=== PATIENT | male | born 1960 | race African-American/Black ===

== ENCOUNTER 2017-01-06 17:24 | Inpatient (IN) | payer MEDICARE, OTHER ==
[~2017-01-06] VITALS: Ht 188 cm; Wt 180.1 kg
[~2017-01-06 17:24] MED LIST: ALBUTEROL2.5 MG/3 M INH; ALLOPURINOL300 M1 ORAL; ASPIRIN-LOW81 MG ORAL; ATORVASTATIN CA80 MG ORAL; BENADRYL25 MG ORAL; BISACODYL5 MG ORAL; COREG25 MG ORAL; CYCLOBENZAPRINE10 MG ORAL; DILAUDID4 MG ORAL; DOCUSATE SODIU100 MG ORAL; GABAPENTIN800 MG ORAL; GLIPIZIDE10 MG PO; GLUCOPHAGE1000 MG ORAL; HUMALOG SQ; IMDUR; IMODIUM2 MG ORAL; ISOSORBIDE MON120 M1 PO; MAGNESIUM OXID400 M1 ORAL; MULTIVITAMINS1 EA14 PO; NEURONTIN600 MG ORAL; NITROSTAT0.4 M2 SL; NORVASC5 MG ORAL; PLAVIX75 MG ORAL; POTASSIUM CHLO10 ME3 ORAL; PROAIR HFA8.5 GM INH; PROSCAR5 MG ORAL; PROTONIX40 MG ORAL; TAMSULOSIN HCL0.4 MG ORAL; TRULICITY1.5 MG/0.5 SQ; TYLENOL EXTRA500 MG ORAL
[2017-01-06] MEDS: Aspirin Baby 81mg ORAL ONE ×2 (17:43→17:47)
[2017-01-06 18:14] LABS: BASOPHILS % (AUTO) 1.1 % (0.0-2.0); EOSINOPHILS % (AUTO) 2.7 % (0.0-3.0); LYMPHOCYTES % (AUTO) 37.4 % (20.0-45.0); MEAN CORPUSCULAR HEMOGLOBIN 28.9 PG (27.0-31.0); MEAN CORPUSCULAR HGB CONC 32.1 G/DL (32.0-36.0); MEAN CORPUSCULAR VOLUME 90 FL (80-99); MEAN PLATELET VOLUME 8.7 FL (6.5-10.1); MONOCYTES % (AUTO) 7.4 % (1.0-10.0); NEUTROPHILS % (AUTO) 51.3 % (45.0-75.0); PLATELET COUNT 201 K/UL (150-450); RED BLOOD COUNT 4.77 M/UL (4.70-6.10); RED CELL DISTRIBUTION WIDTH 14.3 % (11.6-14.8); WHITE BLOOD COUNT 10.7 K/UL (4.8-10.8)
[2017-01-06 18:17] VITALS: BP 102/48
[2017-01-06 18:33] LABS: TROPONIN I < 0.30 ng/mL (<=0.30)
[2017-01-06 18:34] LABS: ALANINE AMINOTRANSFERASE 9 U/L (3-41); ALBUMIN/GLOBULIN RATIO 1.1 (1.0-2.7); ANION GAP 19 (5-15); ASPARTATE AMINO TRANSFERASE 12 U/L (5-40); CALCIUM 9.1 mg/dL (8.6-10.2); CARBON DIOXIDE 21 mEQ/L (20-30); CHLORIDE 98 mEQ/L (98-107); CREATININE 1.4 mg/dL (0.7-1.2); GLOMERULAR FILTRATION RATE > 60 mL/min (>60); HEMOLYSIS 4; POTASSIUM 3.9 mEQ/L (3.4-4.9); SODIUM 138 mEQ/L (135-145); TOTAL PROTEIN 7.4 g/dL (6.6-8.7)
[2017-01-06 18:41] VITALS: BP 102/48
[2017-01-06 18:45] LABS: CKMB < 1.5 ng/mL (< 6.7)
[2017-01-06 19:49] LABS: BILIRUBIN,DIRECT 0.3 mg/dL (0.1-0.3)
[2017-01-06 19:51] LABS: APPEARANCE,URINE CLEAR; KETONES,URINE 1+ (NEGATIVE); LEUKOCYTE ESTERASE ,URINE NEGATIVE (NEGATIVE); NITRITE,URINE NEGATIVE (NEGATIVE); PH,URINE 7 (4.5-8.0); PROTEIN,URINE NEGATIVE (NEGATIVE); UROBILINOGEN,URINE NORMAL MG/DL (0.0-1.0)
[2017-01-06] MEDS ORDERED: Ketorolac 30mg Inj IV ONE (20:30)
--- NOTE | 2017-01-06 20:37 | Emergency Room Report ---
History of Present Illness General Chief Complaint: Chest Pain Source: Patient, EMS Present Illness HPI This patient states that he has had chest pain that started this afternoon around 3 PM. He states he also felt lightheaded. Patient states he has a history of diabetes, coronary artery disease, NV and CVA. EMS report that they see him often in and run him to [facility] very often for the same symptoms. Patient denies recent illness. Patient denies fever chills, cough or congestion. He has no other complaints. Allergies: Coded Allergies: IBUPROFEN (Unverified Adverse Reaction, Unknown, FLUID IN LUNGS, 12/25/15) Uncoded Allergies: Monitor lead stickers (Allergy, Mild, 01/07/17) ibnuprofen (Allergy, Unknown, 12/25/15) caused fluid in lungs Patient History Past Medical History: see triage record, DM, HTN, NV, CAD, CHF, CVA/TIA, other - MARIBEL Past Surgical History: other - Gastric bypass Social History: Denies: alcohol use, drug use, smoking Reviewed Nursing Documentation: PMH: Agreed, PSxH: Agreed Nursing Documentation-PMH Hx Hypertension: Yes Hx Diabetes: Yes Hx Cancer: No Hx Gastrointestinal Problems: No Hx Cerebrovascular Accident: Yes Review of Systems All Other Systems: negative except mentioned in HPI Physical Exam Vital Signs Date Time Temp Pulse Resp B/P Pulse Ox O2 Delivery O2 Flow Rate FiO2 01/06/17 17:17 98.2 48 16 91/71 97 Room Air Sp02 EP Interpretation: reviewed, normal General Appearance: no apparent distress, alert, GCS 15, non-toxic Head: normocephalic, atraumatic Eyes: bilateral eye PERRL, bilateral eye normal inspection ENT: hearing grossly normal, normal pharynx, no angioedema, normal voice Neck: full range of motion, supple/symm/no masses Respiratory: chest non-tender, lungs clear, normal breath sounds, no respiratory distress, no retraction, no accessory muscle use, speaking full sentences Cardiovascular #1: regular rate, rhythm, no edema Gastrointestinal: normal bowel sounds, non tender, soft, non-distended, no guarding, no rebound Rectal: deferred Musculoskeletal: normal range of motion Neurologic: alert, oriented x3, responsive, motor strength/tone normal, sensory intact, speech normal Psychiatric: judgement/insight normal, memory normal, mood/affect normal, no suicidal/homicidal ideation Skin: normal color, no rash, warm/dry, well hydrated Medical Decision Making Diagnostic Impression: Primary Impression: Chest pain ER Course This patient presents with chest pain. He has a history of coronary artery disease and NV. He also has a history of diabetes. He is high risk for acute coronary syndrome. He will be admitted to rule out acute coronary syndrome and further monitoring of his chest pain. Initial workup to include CBC, CMP, cardiac enzymes, chest x-ray and EKG are unremarkable. He is admitted to telemetry. Labs Test 01/06/17 17:40 01/06/17 19:37 White Blood Count 10.7 K/UL (4.8-10.8) Red Blood Count 4.77 M/UL (4.70-6.10) Hemoglobin 13.8 G/DL (14.2-18.0) Hematocrit 43.0 % (42.0-52.0) Mean Corpuscular Volume 90 FL (80-99) Mean Corpuscular Hemoglobin 28.9 PG (27.0-31.0) Mean Corpuscular Hemoglobin Concent 32.1 G/DL (32.0-36.0) Red Cell Distribution Width 14.3 % (11.6-14.8) Platelet Count 201 K/UL (150-450) Mean Platelet Volume 8.7 FL (6.5-10.1) Neutrophils (%) (Auto) 51.3 % (45.0-75.0) Lymphocytes (%) (Auto) 37.4 % (20.0-45.0) Monocytes (%) (Auto) 7.4 % (1.0-10.0) Eosinophils (%) (Auto) 2.7 % (0.0-3.0) Basophils (%) (Auto) 1.1 % (0.0-2.0) Sodium Level 138 mEQ/L (135-145) Potassium Level 3.9 mEQ/L (3.4-4.9) Chloride Level 98 mEQ/L (98-107) Carbon Dioxide Level 21 mEQ/L (20-30) Anion Gap 19 (5-15) Blood Urea Nitrogen 16 mg/dL (7-23) Creatinine 1.4 mg/dL (0.7-1.2) Estimat Glomerular Filtration Rate > 60 mL/min (>60) Glucose Level 121 mg/dL (74-106) Calcium Level 9.1 mg/dL (8.6-10.2) Total Bilirubin 1.9 mg/dL (0.0-1.2) Direct Bilirubin 0.3 mg/dL (0.1-0.3) Aspartate Amino Transf (AST/SGOT) 12 U/L (5-40) Alanine Aminotransferase (ALT/SGPT) 9 U/L (3-41) Alkaline Phosphatase 62 U/L (40-129) Total Creatine Kinase 40 U/L (38-174) Creatine Kinase MB < 1.5 ng/mL (< 6.7) Creatine Kinase MB Relative Index 3.7 Troponin I < 0.30 ng/mL (<=0.30) Total Protein 7.4 g/dL (6.6-8.7) Albumin 3.9 g/dL (3.5-5.2) Globulin 3.5 g/dL Albumin/Globulin Ratio 1.1 (1.0-2.7) Urine Color Yellow Urine Appearance Clear Urine pH 7 (4.5-8.0) Urine Specific [place] 1.010 (1.005-1.035) Urine Protein Negative (NEGATIVE) Urine Glucose (UA) Negative (NEGATIVE) Urine Ketones 1+ (NEGATIVE) Urine Occult Blood Negative (NEGATIVE) Urine Nitrite Negative (NEGATIVE) Urine Bilirubin Negative (NEGATIVE) Urine Urobilinogen Normal MG/DL (0.0-1.0) Urine Leukocyte Esterase Negative (NEGATIVE) Urine Opiates Screen Positive (NEGATIVE) Urine Barbiturates Screen Negative (NEGATIVE) Phencyclidine (PCP) Screen Negative (NEGATIVE) Urine Amphetamines Screen Negative (NEGATIVE) Urine Benzodiazepines Screen Negative (NEGATIVE) Urine Cocaine Screen Negative (NEGATIVE) Urine Marijuana (THC) Screen Negative (NEGATIVE) EKG Diagnostic Results Rate: normal Rhythm: NSR ST Segments: no acute changes Rhythm Strip Diag. Results EP Interpretation: yes Rate: 70's Rhythm: NSR, no PVC's, no ectopy Chest X-Ray Diagnostic Results EP Interpretation: Yes Findings: no consolidation, no effusion, no pneumothorax, no acute cardiopulmonary disease Number of Views: 1 Last Vital Signs Date Time Temp Pulse Resp B/P Pulse Ox O2 Delivery O2 Flow Rate FiO2 01/06/17 18:41 65 21 102/48 100 Room Air 01/06/17 17:17 98.2 Disposition: ADMITTED INPATIENT Condition: Stable Referrals: LA LUONG (PCP) LAY MINOR D.O. Jan 06, 2017 20:37
[2017-01-06 21:15] VITALS: BP 138/56
[2017-01-06] MEDS ORDERED: Diltiazem 25mg/5ml IV PRN (22:00)
[2017-01-06] MEDS ORDERED: Nitroglycerin Subl 0.4mg tab (Bottle Of 25) SL PRN (22:00)
[2017-01-06] MEDS ORDERED: DuoNeb 0.5-3(2.5)mg/3ml neb HHN PRN (22:00)
[2017-01-06] MEDS ORDERED: Miralax 17gm pkt ORAL PRN (22:00)
[2017-01-06] MEDS ORDERED: Ketorolac 30mg Inj IV PRN (22:00)
[2017-01-06] MEDS ORDERED: Enalaprilat 2.5mg/2ml Inj IV PRN (22:00)
[2017-01-07 00:18] VITALS: BP 125/63
[2017-01-07] MEDS: Heparin 5000 units/ml inj SUBQ SCH ×3 (00:45→13:59)
[2017-01-07] MEDS: Morphine Sulfate 2mg/ml Inj IVP PRN ×5 (00:46→18:52)
[2017-01-07 04:16] VITALS: BP 110/46
[2017-01-07] MEDS: NovoLOG Insulin Flexpen SUBQ SCH ×3 (06:24→17:13)
[2017-01-07 06:37] LABS: BASOPHILS % (AUTO) 0.8 % (0.0-2.0); EOSINOPHILS % (AUTO) 3.6 % (0.0-3.0); LYMPHOCYTES % (AUTO) 38.7 % (20.0-45.0); MEAN CORPUSCULAR HEMOGLOBIN 29.1 PG (27.0-31.0); MEAN CORPUSCULAR HGB CONC 32.1 G/DL (32.0-36.0); MEAN CORPUSCULAR VOLUME 91 FL (80-99); MEAN PLATELET VOLUME 8.5 FL (6.5-10.1); MONOCYTES % (AUTO) 6.3 % (1.0-10.0); NEUTROPHILS % (AUTO) 50.6 % (45.0-75.0); PLATELET COUNT 174 K/UL (150-450); RED BLOOD COUNT 4.51 M/UL (4.70-6.10); RED CELL DISTRIBUTION WIDTH 14.4 % (11.6-14.8); WHITE BLOOD COUNT 8.7 K/UL (4.8-10.8)
[2017-01-07 07:04] LABS: INR 1.2 (0.9-1.1); PROTHROMBIN TIME 12.2 SEC (9.30-11.50)
[2017-01-07 07:45] LABS: CHOLESTEROL/HDL RATIO 3.5 (3.3-4.4); CRP QUANT 0.7 mg/dL (< 0.5)
[2017-01-07 07:59] LABS: THYROID STIMULATING HORMONE 0.485 uIU/mL (0.300-4.500)
[2017-01-07] MEDS ORDERED: HYDROmorphone 4mg tab ORAL PRN (08:00)
[2017-01-07 08:02] VITALS: BP 120/67
[2017-01-07 08:22] LABS: TROPONIN I < 0.30 ng/mL (<=0.30)
[2017-01-07] MEDS: Carvedilol 25mg Tab ORAL SCH ×2 (08:57→17:37)
[2017-01-07] MEDS ORDERED: Aspirin Baby 81mg ORAL SCH (09:00)
[2017-01-07] MEDS ORDERED: Bisacodyl EC 5mg tab ORAL SCH (09:00)
[2017-01-07] MEDS ORDERED: Cyclobenzaprine 10mg Tab ORAL SCH (09:00)
[2017-01-07] MEDS ORDERED: FUROSEMIDE10 MG/1 M1 IVP (09:09)
[2017-01-07 11:20] VITALS: BP 109/58
--- NOTE | 2017-01-07 12:38 | Diagnostic Imaging Report ---
Indication: Chest pain Technique: One view of the chest Comparison: none Findings: There is a right arm PICC. Lungs and pleural spaces are clear. Heart size is normal Impression: Negative
--- NOTE | 2017-01-07 13:58 | Wound Care Consultation ---
Wound Assessment Wound Assessment : Wound Present on Admission: Yes New Wound: No Status Change of Wound: No Wound Location Body Site Modif: right Wound Location Body Site: metatarsal head - 1st Wound Type: pressure ulcer Sachi Test: Does not Sachi Pressure Ulcer Stage: IV/unstageable Wound Thickness: Full Thickness Wound Length: 3.0 Wound Width: 3.0 Wound Depth: utd Percent of Wound Black/Brown: 60 Percent of Wound Purple/Maroon: 40 Wound Drainage Amount: None Wound Drainage Odor: None/Absent Tissue Surrounding Wound: Indurated Wound General Appearance: Asymptomatic Wound Comment #1 Right 1st metatarsal head unstageable Recommendation -Local wound care per protocol -Keep clean and dry -Turn and reposition -Optimize nutrition -Offload both heels -Assess and f/u accordingly for any changes JENNIFER BENÍTEZ RN Jan 07, 2017 13:58
--- NOTE | 2017-01-07 15:20 | History and Physical ---
History of Present Illness General Date patient seen: Jan 07, 2017 Reason for Hospitalization: Chest Pain Present Illness HPI 56 year old male with extensive PMHx of multiple CVA, DM angiography in the past , just recently discharged from [facility] for an episode of CVA, he was brought in from his rehab for an episode of chest pain that started yesterday around 3 PM. He states he also felt lightheaded. EMS report that they see him often in and run him to [facility] very often for the same symptoms. Patient denies recent illness. Patient denies fever chills, cough or congestion. He is admitted to telemetry for further evaluation. Allergies: Coded Allergies: IBUPROFEN (Unverified Adverse Reaction, Unknown, FLUID IN LUNGS, 12/25/15) Uncoded Allergies: Monitor lead stickers (Allergy, Mild, 01/07/17) Medication History Scheduled Albuterol Sulfate* (Proair Hfa*), 1 PUFF INH TID, (Reported) Allopurinol* (Allopurinol*), 300 MG ORAL DAILY, (Reported) Amlodipine Besylate (Norvasc), 5 MG ORAL DAILY, (Reported) Aspirin (Aspirin EC), 81 MG ORAL DAILY, (Reported) Atorvastatin Calcium* (Lipitor*), 80 MG ORAL BEDTIME, (Reported) Bisacodyl* (Dulcolax*), 5 MG ORAL DAILY, (Reported) Carvedilol (Coreg), 25 MG ORAL BID, (Reported) Clopidogrel Bisulfate* (Plavix*), 75 MG ORAL DAILY, (Reported) Cyclobenzaprine Hcl* (Flexeril*), 5 MG ORAL Q8, (Reported) Docusate Sodium* (Docusate Sodium*), 100 MG ORAL TWICE A DAY, (Reported) Dulaglutide (Trulicity), 1.5 MG SQ QMONDAY, (Reported) Finasteride* (Proscar*), 5 MG ORAL DAILY, (Reported) Furosemide (Furosemide), 160 MG IVP TID, (Reported) Gabapentin* (Gabapentin*), 1,500 MG ORAL DA, (Reported) Gabapentin* (Neurontin*), 600 MG ORAL BID, (Reported) Glipizide (Glipizide), 10 MG PO BID, (Reported) Hydromorphone HCl (Dilaudid), 4 MG ORAL Q3HR, (Reported) Isosorbide Mononitrate (Isosorbide Mononitrate Er), 240 MG PO DA, (Reported) Loperamide HCl (Loperamide), 2 MG ORAL Q4H, (Reported) Magnesium Oxide (Magnesium Oxide), 800 MG ORAL TID, (Reported) Metformin Hcl (Glucophage), 1,000 MG ORAL BID, (Reported) Multivitamin (Multivitamins), 1 EACH PO DA, (Reported) Nitroglycerin (Nitrostat), 0.4 MG SL NEEDED, (Reported) Pantoprazole* (Protonix*), 40 MG ORAL BI, (Reported) Potassium Chloride (Potassium Chloride), 40 MEQ ORAL TID, (Reported) Tamsulosin Hcl (Tamsulosin Hcl*), 0.4 MG ORAL BEDTIME, (Reported) Scheduled PRN Acetaminophen* (Tylenol Extra Strength*), 500 MG ORAL Q6H PRN for Mild Pain/ Temp > 100.5, (Reported) Albuterol Sulfate* (Albuterol Sulfate Hhn*), 3 ML INH Q4H PRN for Shortness of Breath, (Reported) Diphenhydramine Hcl* (Benadryl*), 25 MG ORAL Q6H PRN for Itching, (Reported) Miscellaneous Medications [Humalog ], SQ, (Reported) [Imdur], (Reported) Patient History Healthcare decision maker Resuscitation status Full Code Advanced Directive on File Past Medical/Surgical History Past Medical/Surgical History: (1) Cerebrovascular accident (CVA) (2) Acute type 1 diabetes mellitus with manifestations (3) Diabetes mellitus (4) Obstructive sleep apnea (5) CAD (coronary artery disease) (6) Chest pain Review of Systems All Other Systems: negative except mentioned in HPI Physical Exam General Appearance: WD/WN, no apparent distress Lines, tubes and drains: peripheral HEENT: normocephalic, atraumatic Neck: non-tender, normal alignment Respiratory/Chest: chest wall non-tender, lungs clear Cardiovascular/Chest: normal peripheral pulses, normal rate Abdomen: normal bowel sounds, non tender Extremities: normal range of motion Last 24 Hour Vital Signs Date Time Temp Pulse Resp B/P Pulse Ox O2 Delivery O2 Flow Rate FiO2 01/07/17 11:20 97.2 57 19 109/58 94 Nasal Cannula 2.0 01/07/17 10:00 72 18 100 Facial 30 01/07/17 08:57 67 120/67 01/07/17 08:57 70 120/67 01/07/17 08:02 96.6 70 20 120/67 100 Bi-pap 30 01/07/17 07:41 81 01/07/17 07:20 73 16 100 Facial 30 01/07/17 04:58 72 17 97 Facial 30 01/07/17 04:16 98.8 65 21 110/46 98 Bi-pap 01/07/17 04:00 81 01/07/17 03:10 70 23 97 Facial 30 01/07/17 01:16 97.5 01/07/17 00:18 97.5 70 20 125/63 98 Nasal Cannula 2.0 01/07/17 00:00 74 01/06/17 22:57 79 19 126/68 99 Room Air 01/06/17 21:15 97.0 68 21 138/56 100 Room Air 01/06/17 20:56 97.0 01/06/17 18:41 65 21 102/48 100 Room Air 01/06/17 18:17 70 22 102/48 100 Room Air 01/06/17 17:27 48 16 Room Air 01/06/17 17:17 98.2 48 16 91/71 97 Room Air Intake and Output 01/06/17 01/07/17 19:00 07:00 # Voids 1 Laboratory Tests Test 01/06/17 17:40 01/06/17 19:37 01/07/17 06:00 White Blood Count 10.7 K/UL (4.8-10.8) 8.7 K/UL (4.8-10.8) Red Blood Count 4.77 M/UL (4.70-6.10) 4.51 M/UL (4.70-6.10) L Hemoglobin 13.8 G/DL (14.2-18.0) L 13.1 G/DL (14.2-18.0) L Hematocrit 43.0 % (42.0-52.0) 41.0 % (42.0-52.0) L Mean Corpuscular Volume 90 FL (80-99) 91 FL (80-99) Mean Corpuscular Hemoglobin 28.9 PG (27.0-31.0) 29.1 PG (27.0-31.0) Mean Corpuscular Hemoglobin Concent 32.1 G/DL (32.0-36.0) 32.1 G/DL (32.0-36.0) Red Cell Distribution Width 14.3 % (11.6-14.8) 14.4 % (11.6-14.8) Platelet Count 201 K/UL (150-450) 174 K/UL (150-450) Mean Platelet Volume 8.7 FL (6.5-10.1) 8.5 FL (6.5-10.1) Neutrophils (%) (Auto) 51.3 % (45.0-75.0) 50.6 % (45.0-75.0) Lymphocytes (%) (Auto) 37.4 % (20.0-45.0) 38.7 % (20.0-45.0) Monocytes (%) (Auto) 7.4 % (1.0-10.0) 6.3 % (1.0-10.0) Eosinophils (%) (Auto) 2.7 % (0.0-3.0) 3.6 % (0.0-3.0) H Basophils (%) (Auto) 1.1 % (0.0-2.0) 0.8 % (0.0-2.0) Sodium Level 138 mEQ/L (135-145) Potassium Level 3.9 mEQ/L (3.4-4.9) Chloride Level 98 mEQ/L (98-107) Carbon Dioxide Level 21 mEQ/L (20-30) Anion Gap 19 (5-15) H Blood Urea Nitrogen 16 mg/dL (7-23) Creatinine 1.4 mg/dL (0.7-1.2) H Estimat Glomerular Filtration Rate > 60 mL/min (>60) Glucose Level 121 mg/dL (74-106) H Calcium Level 9.1 mg/dL (8.6-10.2) Total Bilirubin 1.9 mg/dL (0.0-1.2) H Direct Bilirubin 0.3 mg/dL (0.1-0.3) Aspartate Amino Transf (AST/SGOT) 12 U/L (5-40) Alanine Aminotransferase (ALT/SGPT) 9 U/L (3-41) Alkaline Phosphatase 62 U/L (40-129) Total Creatine Kinase 40 U/L (38-174) Creatine Kinase MB < 1.5 ng/mL (< 6.7) Creatine Kinase MB Relative Index 3.7 Troponin I < 0.30 ng/mL (<=0.30) < 0.30 ng/mL (<=0.30) Total Protein 7.4 g/dL (6.6-8.7) Albumin 3.9 g/dL (3.5-5.2) Globulin 3.5 g/dL Albumin/Globulin Ratio 1.1 (1.0-2.7) Urine Color Yellow Urine Appearance Clear Urine pH 7 (4.5-8.0) Urine Specific [place] 1.010 (1.005-1.035) Urine Protein Negative (NEGATIVE) Urine Glucose (UA) Negative (NEGATIVE) Urine Ketones 1+ (NEGATIVE) H Urine Occult Blood Negative (NEGATIVE) Urine Nitrite Negative (NEGATIVE) Urine Bilirubin Negative (NEGATIVE) Urine Urobilinogen Normal MG/DL (0.0-1.0) Urine Leukocyte Esterase Negative (NEGATIVE) Urine Opiates Screen Positive (NEGATIVE) H Urine Barbiturates Screen Negative (NEGATIVE) Phencyclidine (PCP) Screen Negative (NEGATIVE) Urine Amphetamines Screen Negative (NEGATIVE) Urine Benzodiazepines Screen Negative (NEGATIVE) Urine Cocaine Screen Negative (NEGATIVE) Urine Marijuana (THC) Screen Negative (NEGATIVE) Prothrombin Time 12.2 SEC (9.30-11.50) H Prothromb Time International Ratio 1.2 (0.9-1.1) H Activated Partial Thromboplast Time 27 SEC (23-33) C-Reactive Protein, Quantitative 0.7 mg/dL (< 0.5) H Triglycerides Level 130 mg/dL (< 150) Cholesterol Level 101 mg/dL (< 200) LDL Cholesterol 46 mg/dL (60-99) L HDL Cholesterol 29 mg/dL (> 60) Cholesterol/HDL Ratio 3.5 (3.3-4.4) Thyroid Stimulating Hormone (TSH) 0.485 uIU/mL (0.300-4.500) Height (Feet): 6 Height (Inches): 2.00 Weight (Pounds): 397 Medications Current Medications Medications (Trade) Dose Ordered Sig/Xiomara Route PRN Reason Start Time Stop Time Status Last Admin Dose Admin Acetaminophen (Tylenol) 650 mg Q4H PRN ORAL FEVER 01/06/17 22:00 02/05/17 21:59 Albuterol/ Ipratropium (DuoNeb 0.5-3(2.5)mg/3ml) 3 ml Q4H PRN HHN Shortness of Breath 01/06/17 22:00 01/11/17 21:59 Allopurinol (Allopurinol) 300 mg DAILY ORAL 01/07/17 09:00 02/06/17 08:59 01/07/17 08:57 Amlodipine Besylate (Norvasc) 5 mg DAILY ORAL 01/07/17 09:00 02/06/17 08:59 01/07/17 08:57 Aspirin (ASA) 162 mg DAILY ORAL 01/07/17 09:00 02/06/17 08:59 01/07/17 08:57 Bisacodyl (Dulcolax) 5 mg DAILY ORAL 01/07/17 09:00 02/06/17 08:59 01/07/17 08:57 Carvedilol (Coreg) 25 mg BID ORAL 01/07/17 09:00 02/06/17 08:59 01/07/17 08:57 Cyclobenzaprine HCl (Flexeril) 5 mg DAILY ORAL 01/07/17 09:00 02/06/17 08:59 01/07/17 08:57 Dextrose (Dextrose 50%) STAT PRN IV Hypoglycemia 01/06/17 22:00 02/05/17 21:59 Diltiazem HCl (Cardizem) 10 mg Q1H PRN IV heart rate more than 120, 01/06/17 22:00 02/05/17 21:59 Enalaprilat (Vasotec) 2.5 mg Q6H PRN IV sbp more than 160 01/06/17 22:00 02/05/17 21:59 Finasteride (Proscar) 5 mg DAILY ORAL 01/07/17 09:00 02/06/17 08:59 01/07/17 08:57 Heparin Sodium (Porcine) (Heparin 5000 units/ml) 5,000 units EVERY 8 HOURS SUBQ 01/06/17 22:00 02/05/17 21:59 01/07/17 13:59 Hydromorphone HCl (Dilaudid) 4 mg Q3H PRN ORAL BREAKTHROUGH PAIN 01/07/17 08:00 01/14/17 07:59 Insulin Aspart (NovoLOG) BEFORE MEALS AND HS SUBQ 01/07/17 06:30 02/06/17 06:29 Morphine Sulfate (Morphine Sulfate) 2 mg Q4H PRN IVP severe Pain (Pain Scale 7-10) 01/06/17 22:00 01/13/17 21:59 01/07/17 14:36 Nitroglycerin (Ntg) 0.4 mg Q5M PRN SL Prn Chest Pain 01/06/17 22:00 02/05/17 21:59 Ondansetron HCl (Zofran) 4 mg Q6H PRN IVP Nausea & Vomiting 01/06/17 22:00 02/05/17 21:59 Pantoprazole (Protonix) 40 mg DAILY ORAL 01/07/17 09:00 02/06/17 08:59 01/07/17 08:58 Polyethylene Glycol (Miralax) 17 gm DAILYPRN PRN ORAL Constipation 01/06/17 22:00 02/05/17 21:59 Tamsulosin HCl (Flomax) 0.4 mg BEDTIME ORAL 01/07/17 21:00 02/06/17 20:59 Temazepam (Restoril) 15 mg HSPRN PRN ORAL Insomnia 01/06/17 22:00 01/13/17 21:59 Assessment/Plan Problem List: (1) ACS (acute coronary syndrome) ICD Codes: I24.9 - Acute ischemic heart disease, unspecified SNOMED: 975402903 (2) GERD (gastroesophageal reflux disease) ICD Codes: K21.9 - Gastro-esophageal reflux disease without esophagitis SNOMED: 643727510 (3) Costochondritis ICD Codes: M94.0 - Chondrocostal junction syndrome [[place]ietze] SNOMED: 21051572 (4) Diabetes mellitus ICD Codes: E11.9 - Type 2 diabetes mellitus without complications SNOMED: 61804715 (5) CAD (coronary artery disease) ICD Codes: I25.10 - Atherosclerotic heart disease of [place] coronary artery without angina pectoris SNOMED: 13967709 (6) Obstructive sleep apnea ICD Codes: G47.33 - Obstructive sleep apnea (adult) (pediatric) SNOMED: 07314190 (7) Cerebrovascular accident (CVA) ICD Codes: I63.9 - Cerebral infarction, unspecified SNOMED: 068592062 (8) Acute type 1 diabetes mellitus with manifestations ICD Codes: E10.8 - Type 1 diabetes mellitus with unspecified complications SNOMED: 95578880, 474440232 Assessment/Plan serial ekg, troponin echo cardiology evaluation sliding scale diabetic diet bipap at night at [facility] Jan 07, 2017 15:20
[2017-01-07 16:00] VITALS: BP 117/57
--- NOTE | 2017-01-07 17:24 | Cardiology Progress Note ---
Assessment/Plan Assessment/Plan [id number] Objective Last 24 Hour Vital Signs Date Time Temp Pulse Resp B/P Pulse Ox O2 Delivery O2 Flow Rate FiO2 01/07/17 16:00 97.3 64 18 117/57 Nasal Cannula 2.0 100 01/07/17 14:50 75 19 100 Facial 30 01/07/17 11:44 64 01/07/17 11:20 97.2 57 19 109/58 94 Nasal Cannula 2.0 01/07/17 10:00 72 18 100 Facial 30 01/07/17 08:57 67 120/67 01/07/17 08:57 70 120/67 01/07/17 08:02 96.6 70 20 120/67 100 Bi-pap 30 01/07/17 07:41 81 01/07/17 07:20 73 16 100 Facial 30 01/07/17 04:58 72 17 97 Facial 30 01/07/17 04:16 98.8 65 21 110/46 98 Bi-pap 01/07/17 04:00 81 01/07/17 03:10 70 23 97 Facial 30 01/07/17 01:16 97.5 01/07/17 00:18 97.5 70 20 125/63 98 Nasal Cannula 2.0 01/07/17 00:00 74 01/06/17 22:57 79 19 126/68 99 Room Air 01/06/17 21:15 97.0 68 21 138/56 100 Room Air 01/06/17 20:56 97.0 01/06/17 18:41 65 21 102/48 100 Room Air 01/06/17 18:17 70 22 102/48 100 Room Air 01/06/17 17:27 48 16 Room Air Intake and Output 01/06/17 01/07/17 19:00 07:00 # Voids 1 Laboratory Tests Test 01/06/17 17:40 01/06/17 19:37 01/07/17 06:00 White Blood Count 10.7 K/UL (4.8-10.8) 8.7 K/UL (4.8-10.8) Red Blood Count 4.77 M/UL (4.70-6.10) 4.51 M/UL (4.70-6.10) L Hemoglobin 13.8 G/DL (14.2-18.0) L 13.1 G/DL (14.2-18.0) L Hematocrit 43.0 % (42.0-52.0) 41.0 % (42.0-52.0) L Mean Corpuscular Volume 90 FL (80-99) 91 FL (80-99) Mean Corpuscular Hemoglobin 28.9 PG (27.0-31.0) 29.1 PG (27.0-31.0) Mean Corpuscular Hemoglobin Concent 32.1 G/DL (32.0-36.0) 32.1 G/DL (32.0-36.0) Red Cell Distribution Width 14.3 % (11.6-14.8) 14.4 % (11.6-14.8) Platelet Count 201 K/UL (150-450) 174 K/UL (150-450) Mean Platelet Volume 8.7 FL (6.5-10.1) 8.5 FL (6.5-10.1) Neutrophils (%) (Auto) 51.3 % (45.0-75.0) 50.6 % (45.0-75.0) Lymphocytes (%) (Auto) 37.4 % (20.0-45.0) 38.7 % (20.0-45.0) Monocytes (%) (Auto) 7.4 % (1.0-10.0) 6.3 % (1.0-10.0) Eosinophils (%) (Auto) 2.7 % (0.0-3.0) 3.6 % (0.0-3.0) H Basophils (%) (Auto) 1.1 % (0.0-2.0) 0.8 % (0.0-2.0) Sodium Level 138 mEQ/L (135-145) Potassium Level 3.9 mEQ/L (3.4-4.9) Chloride Level 98 mEQ/L (98-107) Carbon Dioxide Level 21 mEQ/L (20-30) Anion Gap 19 (5-15) H Blood Urea Nitrogen 16 mg/dL (7-23) Creatinine 1.4 mg/dL (0.7-1.2) H Estimat Glomerular Filtration Rate > 60 mL/min (>60) Glucose Level 121 mg/dL (74-106) H Calcium Level 9.1 mg/dL (8.6-10.2) Total Bilirubin 1.9 mg/dL (0.0-1.2) H Direct Bilirubin 0.3 mg/dL (0.1-0.3) Aspartate Amino Transf (AST/SGOT) 12 U/L (5-40) Alanine Aminotransferase (ALT/SGPT) 9 U/L (3-41) Alkaline Phosphatase 62 U/L (40-129) Total Creatine Kinase 40 U/L (38-174) Creatine Kinase MB < 1.5 ng/mL (< 6.7) Creatine Kinase MB Relative Index 3.7 Troponin I < 0.30 ng/mL (<=0.30) < 0.30 ng/mL (<=0.30) Total Protein 7.4 g/dL (6.6-8.7) Albumin 3.9 g/dL (3.5-5.2) Globulin 3.5 g/dL Albumin/Globulin Ratio 1.1 (1.0-2.7) Urine Color Yellow Urine Appearance Clear Urine pH 7 (4.5-8.0) Urine Specific [place] 1.010 (1.005-1.035) Urine Protein Negative (NEGATIVE) Urine Glucose (UA) Negative (NEGATIVE) Urine Ketones 1+ (NEGATIVE) H Urine Occult Blood Negative (NEGATIVE) Urine Nitrite Negative (NEGATIVE) Urine Bilirubin Negative (NEGATIVE) Urine Urobilinogen Normal MG/DL (0.0-1.0) Urine Leukocyte Esterase Negative (NEGATIVE) Urine Opiates Screen Positive (NEGATIVE) H Urine Barbiturates Screen Negative (NEGATIVE) Phencyclidine (PCP) Screen Negative (NEGATIVE) Urine Amphetamines Screen Negative (NEGATIVE) Urine Benzodiazepines Screen Negative (NEGATIVE) Urine Cocaine Screen Negative (NEGATIVE) Urine Marijuana (THC) Screen Negative (NEGATIVE) Prothrombin Time 12.2 SEC (9.30-11.50) H Prothromb Time International Ratio 1.2 (0.9-1.1) H Activated Partial Thromboplast Time 27 SEC (23-33) C-Reactive Protein, Quantitative 0.7 mg/dL (< 0.5) H Triglycerides Level 130 mg/dL (< 150) Cholesterol Level 101 mg/dL (< 200) LDL Cholesterol 46 mg/dL (60-99) L HDL Cholesterol 29 mg/dL (> 60) Cholesterol/HDL Ratio 3.5 (3.3-4.4) Thyroid Stimulating Hormone (TSH) 0.485 uIU/mL (0.300-4.500) MAXIM QUINTERO Jan 07, 2017 17:24
--- NOTE | 2017-01-07 17:26 | Discharge Instructions ---
Discharge Instructions Discharge Instructions Special Instructions fu with your hand frame surgical elastic knitter tomorrow For Congestive Heart Failure Reminder Report to your physician any weight gain of 5 pounds or more in one week. MAXIM QUINTERO Jan 07, 2017 17:26
[2017-01-07 17:37] VITALS: BP 117/57
[2017-01-07] MEDS ORDERED: Tamsulosin 0.4mg cap ORAL SCH (21:00)
--- NOTE | 2017-01-08 02:19 | Consultation ---
DATE OF CONSULTATION: 01/06/2017 CARDIOLOGY CONSULTATION REFERRING PHYSICIAN: Yoan Zamarripa M.D. REASON FOR REFERRAL: Chest pain. HISTORY OF PRESENT ILLNESS: This is a 56-year-old gentleman who is a resident of [facility] where he has been residing for number of years, getting intravenous diuretics to control his congestive heart failure symptoms. He has had several hospitalizations recurrently over at [facility] as where I had a chance to review his [facility] data. He was recently in fact hospitalized and discharged from [facility] just a few days and [facility]. He indicates there is no change in his chest pain. It is the same thing that he has had on prior occasions with one particular point left side of his chest that he has had hurting. Review of data from [facility] indicate the patient has had a cardiac catheterization previously that shown no coronary disease. He has never had angioplasty or stenting according to his own description. He has four to five pillow usage chronically. He has no palpitations. He has shortness of breath at times. There is no PND episode. He has had some episode of dizziness when he stood up yesterday. He feels better back to his normal state and he wants to go back to the facility this evening. PAST MEDICAL HISTORY: Extensive and as I mentioned, I was unable to evaluate his data from [facility] and review of the other cardiologists note that he has been seen and includes history of morbid obesity, obstructive sleep apnea with pickwickian syndrome, hypertension, gout, diabetes, CVA, status post thrombolytic therapy, chronic systolic and diastolic heart failure, and history of chest pains, for which he has had reportedly negative cardiac catheterization previously. He has history of liver lesions, hypokalemia, kidney injury secondary to over diuresis. He has had has had a history of anemia, benign prostatic hypertrophy, bronchitis asthmatic, cholelithiasis, diabetic neuropathy, diabetes mellitus, gout, CVA, status post TPA in November 2012 with extension of CVA in July of 2013 and November 2013 with transient ischemic attack, history of hypertension, hyperlipidemia, as well as shoulder surgery, arthroscopy of the knee, orthopedic surgeon, cataract removal, joint replacement. ALLERGIES: He is allergic to ibuprofen and telemetry electrodes. SOCIAL HISTORY: He does not smoke at the present time. Lives in a convalescent facility. No alcohol at the present time. REVIEW OF SYSTEMS: Gastrointestinal: He denies. Genitourinary: He denies. Pulmonary: He denies. Constitutional: He denies. Neurologic: He denies. Cardiac: As mentioned in the history of present illness. PHYSICAL EXAMINATION: GENERAL: Shows to be morbidly obese middle-aged gentleman, in no apparent respiratory distress. VITAL SIGNS: Temperature 97.2, 57, blood pressure 109/98, and O2 saturation 94% on two liters. NECK: Supple. No jugular venous distention is noted. LUNGS: Appear to be clear to auscultation and percussion. CARDIAC: S1 is normal. S2 is normal. Regular rate and rhythm. No heaves or thrills noted. ABDOMEN: Soft and nontender. Positive bowel sounds. EXTREMITIES: Show chronic venous stasis changes, but there is no significant edema of the lower extremities on examination today. NEUROLOGICAL: He is awake, alert, responsive, and in no apparent respiratory distress. LABORATORY AND DIAGNOSTIC DATA: His sodium is 138, potassium 3.9, chloride 98, bicarbonate 21, BUN of 16, creatinine 1.4, and a glucose of 121. Bilirubin of 1.9. Two sets of cardiac enzymes less than 0.03. CRP of 0.7 and his total cholesterol of 101 with an LDL of 46 and HDL of 29. TSH is 0.45. His white count of 8.7, hemoglobin 13.1, and platelet count of 174,000. His coags, INR 1.2 and PTT of 27. His urinalysis is completely normal. His urine drug screen positive for opiates, otherwise negative for marijuana. His electrocardiogram shows normal sinus rhythm, some nonspecific T-wave changes and in direct comparison with his prior EKGs, really not significantly changed with minimum T-wave changes in I and aVL which were present on prior EKGs as well at [facility]. Imaging: A chest x-ray performed shows negative findings. ASSESSMENT AND PLAN: 1. Chronic recurrent intermittent chest pains with reportedly negative cardiac catheterization at [facility] a few years ago with history of the same. 2. Chronic systolic and diastolic heart failure. 3. History of hypertension. 4. Sleep apnea with pickwickian syndrome. 5. Prior history of cerebrovascular accident, previously treated with thrombolytic therapy on one occasion. PLAN: Dr. Zamarripa, this patient was seen in cardiac consultation. The patient appears not to be in any kind of respiratory distress. There is no evidence of acute congestive heart failure. He has had chronic issues as before. He is responsive apparently only to intravenous Lasix as he is receiving venkat doses at the convalescent facility for a number of years where he is staying. His cardiac enzymes are negative. His EKG is unchanged. He has had similar symptoms and hospitalizations at [facility] previously, I do not see any need to perform any other x-ray testing. He should be discharged back to convalescent facility treatment team. He has an appointment for followup with his tape maker tomorrow morning that he wants to keep. From a cardiac point of view, I suspect he will be fine to discharge him back to the facility with appropriate followup. Noe Vee M.D. DR: Tsering JOB#: [id number] CC:
--- NOTE | 2017-01-08 20:28 | Discharge Summary ---
Discharge Summary Hospital Course Date of Admission Jan 06, 2017 at 20:47 Date of Discharge Jan 07, 2017 at 20:45 Admitting Diagnosis Chest Pain, r/o Acute Coronary Syndrome HPI Jose Neff is a 56 year old male who was admitted on Jan 06, 2017 at 20: 47 for Chest Pain, Fule Out Acute Coronary Syndrome Hospital Course [id number] Discharge Discharge Disposition Patient was discharged to snf Discharge Diagnoses: Reanna Castro NP Jan 08, 2017 20:28
--- NOTE | 2017-01-08 22:39 | Discharge Summary 2 SIG ---
DATE OF ADMISSION: 01/06/2017 DATE OF DISCHARGE: 01/07/2017 CONSULTANTS: Noe Vee M.D. BRIEF HOSPITAL COURSE: The patient is a 56-year-old male with extensive past medical history including multiple cerebrovascular accidents, diabetes mellitus, was brought in from rehabilitation center because of chest pain. He was just recently discharged from [facility]. He has history of coronary artery disease and myocardial infarction, history of diabetes, and has high risk for acute coronary syndrome. He was admitted for cardiac monitoring and cardiac workup. Dr. Vee was consulted. The patient has had several hospitalizations over at [facility] and review from [facility] indicate that the patient has had cardiac catheterization previously that has shown no coronary disease. He has never had angioplasty or stenting. He had a history of CVA, status post tPA. His 2 sets of cardiac enzymes were negative. EKG showed normal sinus rhythm with nonspecific ST wave changes. Chest x-ray was negative. He has history of systolic and diastolic heart failure and has been on diuretics at the nursing facility and has a scheduled followup with his pound keeper. Due to rapid unexpected improvement in the patient's symptoms, the patient was discharged home, advised to keep his followup appointment with the pound keeper. FINAL DIAGNOSES: 1. Chronic recurrent intermittent chest pain with reportedly negative cardiac catheterization at [facility] few years ago with history of the same. 2. Chronic systolic diastolic heart failure. 3. History of hypertension. 4. Sleep apnea with Pickwickian syndrome. 5. Old cerebrovascular accident. 6. Obstructive sleep apnea. 7. Diabetes mellitus. 8. Costochondritis. 9. Gastroesophageal reflux disease. 10. Right first metatarsal head unstageable pressure ulcer, present on admission. Yoan Zamarripa M.D. I have been assigned to dictate discharge summary on this account and I was not involved in the patient's management. Reanna Castro N.P. DR: TOBI JOB#: [id number] CC: BRIA
--- NOTE | 2017-01-09 11:56 | Cardiology Report ---
APPROVED REPORT EKG Measurement Heart [id number] Normal sinus rhythm Minimal voltage criteria for LVH, may be normal variant Borderline ECG
== END 2017-01-07 20:45 | DRG 206 ==
LOC: EDBD 17:24 → EMR 17:44 → 2E 20:47 → EDBEDREQ 21:33
DX: M94.0 Chondrocostal junction syndrome [Tietze] (principal); I11.0 Hypertensive heart disease with heart failure; I50.42 Chronic combined systolic (congestive) and diastolic (congestive) heart failure; Z68.43 Body mass index [BMI] 50.0-59.9, adult; E66.2 Morbid (severe) obesity with alveolar hypoventilation; I25.10 Atherosclerotic heart disease of native coronary artery without angina pectoris; E10.9 Type 1 diabetes mellitus without complications; G47.33 Obstructive sleep apnea (adult) (pediatric); K21.9 Gastro-esophageal reflux disease without esophagitis; E78.5 Hyperlipidemia, unspecified; Z86.73 Personal history of transient ischemic attack (TIA), and cerebral infarction without residual deficits
CPT/HCPCS: 36415; 71010; 80053; 80061; 80300; 81003; 82248; 82550; 82553; 82962; 84443; 84484; 85025; 85610; 85730; 86140; 87070; 87081; 87181; 87205; 93005; 94660; 94760; J1815